=== PATIENT | female | born 1970 | race Caucasian/White ===

== ENCOUNTER 2024-08-04 10:49 | Inpatient (IN) | payer OTHER, SELFPAY ==
--- NOTE | 2024-07-30 11:57 | EKG12_ITS ---
Test Reason : PREOP Blood Pressure : */* mmHG Vent. Rate : 77 BPM Atrial Rate : 77 BPM P-R Int : 152 ms QRS Dur : 84 ms QT Int : 424 ms P-R-T Axes : 53 24 38 degrees QTcB Int : 479 ms Normal sinus rhythm with sinus arrhythmia Normal ECG Confirmed by MICHAEL MAGANA, MARIVEL ([id number]), newspaper photo editor EMILIE BLOOD ([id number]) on 08/02/2024 6:09:03 AM Referred By: Riccardo Mejia Confirmed By: MARIVEL RODRIGUEZ MD
[2024-07-30 13:03] LABS: Absolute Lymphocyte Count 1.82 X10^3/uL (0.83-4.51); Absolute Neutrophil Count 3.5 X10^3/uL (2.0-7.7); Basophil# 0.04 X10^3/uL; Basophil% 0.7 % (0-1); Eosinophil# 0.19 X10^3/uL; Eosinophils% 3.2 % (0-5); Hematocrit 40.4 % (37-47); Hemoglobin 13.4 g/dL (12.0-15.0); Lymphocyte # 1.82 X10^3/ul (0.83-4.51); Lymphocyte % 30.7 % (19-41); Mean Corp Hgb Conc 33.2 g/dL (32-36); Mean Corpuscular Hgb 28.9 pg (27.0-32.0); Mean Corpuscular Volume 87.3 fL (81-99); Mean Platelet Vol. 9.6 fl (6.2-12.0); Monocyte# 0.41 X10^3/uL; Monocyte% 6.9 % (0-10); NRBC Flagged by Analyzer 0 % (0-5); Neutrophil # 3.45 X10^3/uL (2.7-7.7); Neutrophil % 58.3 % (47-70); Platelet Count 255 K/mm3 (150-450); RBC Distribution Width CV 14.3 % (11.6-14.6); RBC Distribution Width SD 45.3 fl (35.1-43.9); Red Blood Count 4.63 M/mm3 (4.2-5.4); White Blood Count 5.9 K/mm3 (4.4-11.0)
[2024-07-30 14:13] LABS: Anion Gap 6 (5-15); BUN 13 mg/dL (7-18); BUN/Creat Ratio 19.2 RATIO (10-20); Calcium,Total 9.2 mg/dL (8.5-10.1); Chloride 103 mmol/L (98-107); Creatinine, Serum 0.68 mg/dL (0.55-1.02); EST Glomerular Filtration Rate 97 mL/min (>60); Est Glom Filt Rate - Afr Amer 117 mL/min (>60); Glucose 115 mg/dL (74-106); Magnesium 2.4 mg/dL (1.6-2.6); Potassium 3.7 mmol/L (3.5-5.1); Sodium Level 138 mmol/L (136-145)
[2024-07-31 05:07] LABS: Hepatitis A AB, Total Negative (Negative)
[2024-07-31 12:35] LABS: HIV - WCH Non-Reactive (Nonreactive); Hepatitis B Surface Antibody Non-Reactive; Hepatitis C Antibody Non-Reactive (Nonreactive)
[2024-08-04] VITALS (12 sets, daily range): BP systolic 121–169; BP diastolic 67–87; PULSE 60–96; RESP 14–20; TEMP 36.4–37.3; O2SAT 89–100; BMI 35.5; BMI 36.8
[2024-08-04] MEDS: 0.9% Normal Saline (1000mL) 1,000 ML 15 ML IV (05:50)
[2024-08-04] MEDS: Magnesium 1 GM over 15 mins IV (05:55)
[2024-08-04] MEDS: Acetaminophen 500 MG Tablet 1000 MG PO ×3 (06:14→21:54)
--- NOTE | 2024-08-04 06:30 | RAD_ITS ---
Fluoroscopic guidance imaging was used for intraoperative planning. Please refer to the operative note for further details. Total fluoroscopy time was 149.2 seconds. Total radiation dose was 106.48 mGy. Reading Location: [facility]
--- NOTE | 2024-08-04 07:02 | PRE.ANES_ITS ---
ASA Classification* ASA Classification ASA Classification: 2 Assessment & Plan Anesthesia* Anesthesia Assessment Anesthesia Assessment: Discussed sedation and/or anesthesia options, risks, benefits, and alternatives with patient/parents/legal guardian/POA. Questions invited. The patient/parents/legal guardian/POA seems to understand and agrees to proceed with anesthesia plan. Reviewed the physical assessment, medical history, allergy history and patient home medications list prior to surgery/procedure/anesthetic and documented any changes. Performed airway and anesthesia risk assessments. Anesthesia Type Anesthesia Type: General Anesthesia Focused Assessment* Temperature: 99.1 F Pulse Rate: 86 Blood Pressure: 169/86 Respiratory Rate: 16 Pulse Ox: 98 Airway Assessment Mouth opens: >3 cm Mallampati Score: II Focused Labs Anesthesia Preop lab: CBC WBC 5.9 K/mm3 (4.4-11.0) 07/30/24 12:14 07/30/24 RBC 4.63 M/mm3 (4.2-5.4) 07/30/24 12:14 07/30/24 Hgb 13.4 g/dL (12.0-15.0) 07/30/24 12:14 07/30/24 Hct 40.4 % (37-47) 07/30/24 12:14 07/30/24 Plt Count 255 K/mm3 (150-450) 07/30/24 12:14 07/30/24 CHEMISTRY Potassium 3.7 mmol/L (3.5-5.1) 07/30/24 12:14 07/30/24 Sodium 138 mmol/L (136-145) 07/30/24 12:14 07/30/24 Magnesium 2.4 mg/dL (1.6-2.6) 07/30/24 12:14 07/30/24 BUN 13 mg/dL (7-18) 07/30/24 12:14 07/30/24 Creatinine 0.68 mg/dL (0.55-1.02) 07/30/24 12:14 07/30/24 Glucose 115 mg/dL (74-106) H 07/30/24 12:14 07/30/24 COAG Pre-Assessment Diagnosis/Proposed Procedure Planned Operative Procedure(s): Minimally invasive Transforaminal Lumbar Interbody Fusion L5-S1 Anesthesia History Anesthesia History - curriculum and assessment director: Anesthesia History - curriculum and assessment director Hx Hospitalization No 07/23/24 09:01 Any Problems With Anesthesia No 07/23/24 09:01 Cholinesterase deficiency No 07/23/24 09:01 You/Your Family Experience No 07/23/24 09:01 fever (hyperthermia) with Relationship Recent Exposure to Contagious No 08/04/24 05:50 Disease Does patient have nerve No 07/23/24 09:01 stimulator Patient instructed to have device shut off --Does patient have Pacemaker No 08/04/24 05:50 or ICD? When Was Last Pacemaker Check QUESTION #4 FULL TEXT: You/Your Family Experience fever (hyperthermia) with Anesthesia Last Oral Intake Last Oral intake: Last Oral Intake NPO since 03:30 08/04/24 05:50 Meds taken in AM with sips of No 08/04/24 05:50 water? Meds patient instructed to take am of surgery PONV PONV - curriculum and assessment director: PONV - curriculum and assessment director Female Yes 07/23/24 09:01 HX of Motion Sickness Yes 07/23/24 09:01 HX of N/V After Surgery Yes 07/23/24 09:01 Non-Smoker Yes 07/23/24 09:01 Duration of Surgery greater Yes 07/23/24 09:01 than 60 minutes Number of Risk Factors 5 07/23/24 09:01 PONV Score Severe Risk 07/23/24 09:01 Height & Weight Height & Weight: Anesthesia: Height & Weight Height 5 ft 8 in 08/04/24 05:50 Weight: 106 kg 08/04/24 05:50 Body Mass Index (BMI) 35.5 08/04/24 05:50 Respiratory Assessment Respiratory Assessment - curriculum and assessment director: Respiratory Tract Infection Hx - curriculum and assessment director Hx Respiratory Tract Infection No 07/23/24 09:01 STOP Sleep Apnea STOP Sleep Apnea - curriculum and assessment director: STOP Sleep Apnea - curriculum and assessment director Hx Hypertension Yes 07/23/24 09:01 Hx Sleep Apnea Yes: USES APAP 07/23/24 09:01 CPAP No 07/23/24 09:01 BIPAP No 07/23/24 09:01 Do you snore loudly (louder than talking or can be heard Do you often feel tired/ fatigued/ sleepy during daytime? Has anyone observed you stop breathing during sleep? STOP Results Positive 07/23/24 09:01 QUESTION #5 FULL TEXT : Do you snore loudly (louder than talking or can be heard through closed doors)? Tobacco Use History Tobacco Use History - curriculum and assessment director: Tobacco Use History - curriculum and assessment director Tobacco Use Smoking Status Former smoker 07/23/24 09:01 Hx Tobacco Use Yes 07/23/24 09:01 Years Smoking Packs Smoked per Day Smoking Cessation Date was Yes - quit smoking within 15 07/23/24 09:01 within the last 15 years years Hx Smoking Cessation Date Hx Smoking Cessation Counseling Hematologic Medial History Hematologic Hx - curriculum and assessment director: Hematologic Medical Hx - drawer in Hx of Blood Transfusion No 07/23/24 09:01 Hx of Transfusion in last 3 No 07/23/24 09:01 Months Date of Last Transfusion (if within last 3 months) Ever experience any problems No 07/23/24 09:01 with transfusion(s)? Specify any problems Hx of Preganancy in last 3 No 07/23/24 09:01 Months Nurse Filling Out Transfusion VLEHMAN 07/23/24 09:01 & Questions: Date: 07/23/24 07/23/24 09:01 Time: 09:09 07/23/24 09:01 Patient unable to answer at this time (ie. confused, unrespo /Reproduction History /Reproductive History - curriculum and assessment director: /Reproductive Hx- curriculum and assessment director Hx Now No 07/23/24 09:01 Gestational Age (in weeks): EDC: Hx Hx Para Hx Section SAB Active Medications Active Medications: Current Medications Generic Name Dose Route Start Last Admin Trade Name Freq PRN Reason Stop Dose Admin Acetaminophen 1,000 mg 08/04/24 07:30 08/04/24 06:14 Acetaminophen 500 Mg Tablet PO 08/04/24 07:31 1,000 mg X1 ONE Administration Cefazolin Sodium 2 gm/ N/A 20 mls @ 400 mls/hr 08/04/24 07:30 IV 08/04/24 07:32 PREOP ONE Tranexamic Acid 1,000 mg/ 110 mls @ 440 mls/hr 08/04/24 07:30 Sodium Chloride IV 08/04/24 07:44 X1 ONE Tranexamic Acid 1,000 mg/ 110 mls @ 440 mls/hr 08/04/24 07:30 Sodium Chloride IV 08/04/24 07:44 X1 ONE Magnesium Sulfate 1 gm/ 102 mls @ 408 mls/hr 08/04/24 07:30 08/04/24 05:55 Dextrose IV 08/04/24 07:44 408 mls/hr X1 ONE Administration Sodium Chloride 1,000 mls @ 15 mls/hr 08/04/24 05:40 08/04/24 05:50 IV 08/09/24 18:59 15 mls/hr .Q48H YOSELIN Administration Protocol Insulin Human Lispro 1 - 6 unit 08/04/24 07:30 Insulin Lispro 100 Unit/Ml Insuln.Pen SC 08/04/24 18:00 Q4H PRN PRN BG>/= 180, SEE PROTOCOL Protocol PFSH Medical History Wears glasses Wears dentures Arthritis High cholesterol Former smoker Sleep apnea Home Medications ?Medication ?Instructions ?Recorded ?Last Taken ?Type lisinopril 20 mg tablet 20 mg PO QDAY 07/16/2408/03 11:00 History meloxicam 7.5 mg tablet 7.5 mg PO QDAY 07/16/2410/22 11:00 History Allergy/AdvReac Type Severity Reaction Status Date / Time pseudoephedrine (From AdvReac Other Verified 08/04/24 06:08 Sudafed) Surgical History History of tooth extraction History of surgery History of appendectomy History of laminectomy H/O discectomy History of repair of rotator cuff Social History household members: spouse Smoking Status: Former smoker alcohol intake: current alcohol intake frequency: holidays/special occasions only Review of Systems (Anesthesia) ROS Narrative System reviewed and no additional complaints, except as documented.
--- NOTE | 2024-08-04 07:18 | PCM.HP.BLA ---
History and Physical Date of Admission: 08/04/24 MR#: [id number] Acct: [id number] Name: WILLIAMS COHEN Rep #: [id number] : 1970 Provider: Dr. Riccardo Mejia MD Age/Sex: 54/F Location: [facility] [place].[facility] Status: Signed Intake Vital Signs 07/16/2512:23 Height 5 ft 8 in Weight: 234 lb BMI 35.6 Intake Visit Reasons: lumbar spine Chief Complaint: Lumbar Spine Pain Accompanied by: Is patient in pain?: No Allergies pseudoephedrine (From YOLLEGE) Adverse Reaction (Verified 07/30/24 14:32) Other Medications ?Medication ?Instructions ?Recorded ?Confirmed ?Type lisinopril 20 mg tablet 20 mg PO QDAY 07/16/24 07/30/24 History meloxicam 7.5 mg tablet 7.5 mg PO QDAY 07/16/24 07/30/24 History PFSH Medical History Wears glasses Wears dentures Arthritis High cholesterol Former smoker Sleep apnea Surgical History History of tooth extraction History of surgery History of appendectomy History of laminectomy H/O discectomy History of repair of rotator cuff Social History household members: spouse Smoking Status: Former smoker alcohol intake: current alcohol intake frequency: holidays/special occasions only HPI lumbar spine Details: This documentation accurately reflects the service provided and the decisions made by me, Dr. Riccardo Mejia MD 07/30/24 1432. Part of today?s visit was documented by [ ], acting as scribe. WILLIAMS COHEN is a 54 year old F here today for pre-op visit for upcoming L5-S1 transforaminal lumbar body fusion to allow decompression and stabilization. Pre-op instructions completed. Pt verbalized understanding. HPI for 07/16/24 OV for lumbar spine pain. Patient states the back has been bothering her for years. Patient states this time her back started bothering her in the end of February. She states she bent down to tie her shoe and and felt something in her back. She states she was in bed for about 3 weeks and was only able to get out to use the restroom. She describes most of the pain over the right lumbar spine and down the right leg. Patient states she tried physical therapy at [facility] in [place] and it did not give her any relief and anything that they had her do really gave her pain. Patient states the right foot is numb and she has a cold feeling to it. She denies any pain down the right leg. Patient had a discectomy and laminectomy in 2021. Patient states she had foot drop really bad after her prior surgeries. Patient states she had an injection on 04/23/[address] Mendez and she did not get any relief. Reviewed x-rays of the lumbar spine done today and MRI done in April. Postsurgical changes of right L5-S1 laminotomy noticed. There is a recurrent right paracentral disc herniation at L5-S1. L5-S1 disc height loss and Modic changes noticed. The first time she dealt with lumbar spine pain she was reaching to grab a pen off of a shelf and hit the floor due to initial pain. When the first injury occurred she had extreme pain down the right leg and dealt with sciatic type of pain. After surgery she had a lot of radiating pain, numbness and tingly sensation in her foot on the right side. She first had an injection in December 2023. The weakness in the right leg has never come back since her first surgery. Since she hurt her back the second time the pain and nerve type of pain in the right leg has gotten better. Her right calf muscle will knot up and cause her pain. Non diabetic, her PCP did think she was pre-diabetic and had her take trulicity and A1C came down drastically. Not currently taking blood thinners. No heart/lung issues. Ortho Exam General General: Yes no acute distress Neurologic: Yes alert and Yes oriented x3 Psychologic: Yes reasonable and appropriate Spine SPINE TESTING CERVICAL THORACIC LUMBAR Musculoskeletal Strength 0=absent - 5=normal Details: Examination of the back shows prior midline lower lumbar incision well-healed. There is significant spinous process as well as paraspinal tenderness in the lower lumbar spine towards the right. Neurologic evaluation of lower extremity shows 5 x 5 power in all muscles except for right gastrosoleus which is grade 4. Reduced sensation in right S1 dermatome. Right sided passive straight leg raise test is positive. There is no hyperreflexia lower extremities. Coding Level of Care Code Off vis,est,level 4 Diagnoses Recurrent herniation of lumbar disc M51.26 Other intervertebral disc degeneration, lumbar region with discogenic back pain and lower extremity pain M51.362 Time Spent (min) 35 Assessment and Plan Assessment and Plan (1) Recurrent herniation of lumbar disc: Status: Acute (2) Other intervertebral disc degeneration, lumbar region with discogenic back pain and lower extremity pain: Status: Acute Plan Again reviewed x-rays of the lumbar spine done today and MRI done in April. Postsurgical changes of right L5-S1 laminotomy noticed. There is a recurrent right paracentral disc herniation at L5-S1. L5-S1 disc height loss and Modic changes noticed. Again explained the imaging findings in detail today. Explained to her that she has developed a recurrent disc herniation. A lot of her leg symptoms from the multiple disc herniations have somewhat improved with some residual numbness and calf cramping and weakness, but her axial low back pain has continued to worsen and is affecting her quality of life. Discussed treatment options which include continued nonoperative treat measures versus surgery. She has had 2 epidural injections over the last few months without persistent relief. She is not able to do activities of daily living due to the severe pain. Surgical options were discussed. Decompression with fusion was discussed in detail in the form of TLIF, as she has had recurrent disc herniations and is now having more back pain than leg pain. Explained the risks and benefits of L5-S1 TLIF. The risks include but are not limited to infection, bleeding, hematoma formation, need for further surgery, injury to nerves and vessels, nerve root injury, foot drop, persistent pain, persistent numbness and weakness, adjacent segment degeneration, hardware failure, pseudoarthrosis, DVT, pulm embolism, cardiopulmonary event. Patient understands and agrees to proceed with surgery
[2024-08-04] MEDS: Cefazolin 2 GM in Syringe 10 ML IV ×2 (08:12→16:11)
[2024-08-04] MEDS: TRANEXAMIC ACID 1,000 MG in 0.9% Normal Saline (100mL Bag) 100 ML 440 MG IV ×2 (08:13→10:13)
[2024-08-04] MEDS: Ropivacaine 0.5% 30 ML Vial (10:35)
--- NOTE | 2024-08-04 10:37 | PCM.OPRPT ---
Procedures Musculoskeletal [id number]: Other Procedure See Report Operative Report (Standard) Operative Information Date of Procedure: 08/04/24 Pre-Operative Diagnosis: L5-S1 disc degeneration, recurrent disc herniation Post-Operative Diagnosis: Same Surgery/Procedure Performed: L5-S1 transforaminal lumbar interbody fusion inspector rag sorting: Yes Heating And Ventilation Engineer: Chela Garcia Tasks completed by airplane first officer: Closing, Removing tissue, Hemostasis: Electrocautery and Retracting Type of Anesthesia: General RN Documented Start/Stop Times: Operation Date: 08/04/24 07:30 Case Time Into Pre-Op 08/04/24 05:33 Out of Pre-Op 08/04/24 07:25 Anesthesia Start 08/04/24 07:30 Into Room 08/04/24 07:30 Procedure Start 08/04/24 08:16 Procedure Start Time: 08:16 Procedure Stop Time: 10:40 Select all DRAINS/GRAFTS/IMPLANTS that apply: Graft Graft details: Cortical cancellous allograft bone chips, autograft from lamina and facet bone and Implanted device Implanted device details: DePuy Synthes XPac TLIF expandable cage, Viper prime pedicle screw instrumentation Estimated Blood Loss: 50 cc Specimen collected: No Description of surgery: Preoperative diagnosis: L5-S1 disc degeneration with recurrent disc herniation, stenosis Postoperative diagnosis: Same Name of procedure: L5-S1 transforaminal lumbar interbody fusion (TLIF), minimally invasive right side approach, percutaneous pedicle screw instrumentation. . L5-S1 posterior spinal fusion and interbody fusion [id number] ? L5-S1 posterior pedicle screw instrumentation [id number] . L5-S1 insertion of cage [id number] . Local autograft [id number] . Cancellous allograft with DBX Attending Surgeon: Dr. Riccardo Mejia Estimated blood loss: 50 mL Anesthesia: GA Complications: None Implants: DePuy Synthes X-PAC TLIF cage, Viper prime screws Indications: Patient is a 54-year-old lady who has had a history of low back pain that radiates into right lower extremity. X-rays and MRI revealed L5-S1 disc degeneration with left paracentral disc herniation, lateral recess stenosis, postsurgical changes of prior right L5-S1 laminotomy. Patient was explained all options of treatment which included continued nonoperative treatment measures like rest physical therapy, epidural steroidal injections. After a prolonged period of of nonoperative treatment, patient elected to undergo surgical decompression & fusion since the symptoms severely affected her quality of life. All risks and benefits associated with the procedure were explained to the patient. The risks include but are not limited to infection, bleeding, injury to nerves and vessels, persistent paresthesia, persistent pain, dural tear, need for further procedures, adjacent segment degeneration, pseudoarthrosis, hardware failure, etc. Procedure: The patient was identified in the preoperative holding suite using unique patient identifiers. Skin was marked, consent was reviewed, and all questions were answered. The patient was then brought back to the operative room. A surgical timeout was performed to make sure correct procedure was being done on the correct patient and all operative room staff were on the same page. General endotracheal anesthesia was then given to the patient. Neuromonitoring leads were applied. The patient was then turned prone onto a Shravan table. The back was prepped and draped in usual fashion. IV antibiotic was given as preoperative antibiotic. A final timeout was then again done just before starting the procedure. C-arm AP view was then taken. C-arm was positioned in a way that L5 was centralized and superior endplate of L5 and was parallel to the beam. Spinous process was centered between the pedicles. Midline was marked with skin marker and lateral borders of the pedicles were also marked. Skin marker was also utilized to joycelyn transversely across the middle of the pedicles at L5. 2 vertical incisions about 1 inch Extending below this line were taken about 1/2 inch lateral to the pedicle line. The fascia was also incised vertically approximately the same length. Finger dissection was utilized to palpate the superior articular process and facet joint of L5-S1 on the right side. Sequential tubes were docked on the L5-S1 facet joint and 80 mm length and 21 mm diameter tubular retractor was then placed and was attached to the arm attached to the OR table. Muscle tissue was removed with pituitaries and hemostasis was achieved with Bovie. Right inferior articular process of L5 and superior articular process of S1 were exposed with Bovie. Osteotome was utilized to remove a portion of the inferior articular process to expose the articular surface of S1. Some of this resected bone was used as autograft. Bone scalpel was then utilized to remove the rest of the inferior articular process and part of the lamina of L5. Superior articular process of S1 was resected with the help of a bone scalpel and osteotome such that the cut was flush with the superior border of S1 pedicle. The traversing nerve root was carefully retracted to expose the disc. Hemostasis was achieved with bipolar cautery. Cruciate incision into the annulus was taken. Multiple nerve hook was utilized to remove any extruded fragments from the lateral recess. Blunt spreaders were utilized to enter the disc space under C-arm visualization. Pituitary was used to remove disc material. Curettes of various sizes and angulations were utilized to remove as much of the disc material as possible. End plates were curetted to remove all cartilage. Angled curettes were used to remove disc material from the other side underneath the central annulus. Depuy X-PAC trials were inserted into position and checked under C- arm lateral view. The disc space was then filled with cancellous bone chips mixed with DBX which were then impacted with the trials. An 10 x 28 mm lordotic tall X-PAC cage filled with bone graft was then inserted into the disc space under x-ray control. Care was taken to make sure the cage was inserted deeper to the posterior longitudinal ligament. The expandable cage was then expanded to up to approximately 14 mm anterior height with approximately 15 degrees lordosis. The cage was found to be well fixed and not easily removable. AP and lateral views showed good positioning of the cage. Depuy Viper Prime screw tower was docked onto the transverse processes at L5. This was then slowly moved medially to reach the superior articular process of L5. This was then confirmed on C-arm and then a mallet was utilized to drive the trocar and screw into the pedicle going up to the medial wall of the pedicle on AP view. This was performed both sides. C-arm lateral view confirmed both trocars to be inside vertebral body. The screws were advanced. Similar procedure was done at S1 both sides. Cannulated pedicle screws (Depuy Viper) sizes were 7 x 45 mm bilaterally at L5 and S1 levels bilaterally. The lateral view showed good positioning of the screws and cage. 45 mm precontoured titanium 5.5 mm lordotic fredy on both sides was then passed through the screw extensions and reduced down to the screws with the help of Depuy Viper Prime instrumentation system. AP and lateral views of the C-arm showed good positioning of the screws and cage. Final tightening with the torque screwdriver was then completed. Micheal was utilized to decorticate the left L5-S1 facet joint and bone graft was placed over this. Hemostasis was achieved with the help of Bovie and FloSeal. Closure was done in layers with 0 Vicryls for the fascia, 2-0 Vicryls for the subcutaneous tissue, and Monocryl for the skin. Dressings were applied covered with Tegaderm. The patient was then turned supine onto a hospital bed. The patient was extubated and taken to PACU in stable condition. The patient tolerated the procedure well and no complications occurred. Missingames X-PAC cage & Viper Prime minimally invasive pedicle screw instrumentation system was utilized in this case. No dural tear was identified in this case. Multimodal neuro monitoring was utilized. All potentials stayed at baseline throughout the procedure. I was present for the entirety of the case and performed the surgery myself. On[employer]razzo Worker Chela Garcia PA-C. My physician life enrichment assistant was a vital part of this case. They were important in appropriate retraction during the case, and protection of soft tissues during the procedure. Their intimate knowledge of the case and my steps aided in safe and expedient completion of the procedure as well as appropriate position of the patient during the surgery. They were also vital in assisting with closure under my direct supervision. Surgical Findings: See operative note Complications Complications: No
--- NOTE | 2024-08-04 13:08 | PCM.POST.ANE ---
Anesthesia: Postop Eval I Current Vital Signs Temperature: 97.9 F Pulse Rate: 77 Blood Pressure: 127/75 Respiratory Rate: 18 Pulse Ox: 99 Oxygen Delivery Method: Nasal Cannula Oxygen Flow Rate (L/min): 2 Assessment Airway patent: Yes Spontaneous unlabored respirations: Yes nausea: No Vomiting: No Anesthesia Complication: No Fluid Hydration Crystalloid volume administer (ml): 800 Total IV fluid infused: 800 Progress Note Anesthesia document: Postop Eval 1 completed: Yes
--- NOTE | 2024-08-04 13:10 | PCM.POSTANE2 ---
Anesthesia Postop Eval I Sum Postop Eval Completion status Anesthesia document: Postop Eval 1 completed: Yes Anesthesia Postop Eval I Summary Anesthesia Postop Eval I Summary: Anesthesia Postop Eval I: Assessment Summary Airway patent Yes 08/04/24 13:09 Spontaneous unlabored Yes 08/04/24 13:09 respirations Mental status nausea No 08/04/24 13:09 Vomiting No 08/04/24 13:09 Anesthesia Postop Eval I: Fluid Summary Crystalloid volume administer 800 08/04/24 13:09 (ml) Colloids volume administered ( ml) Blood Product volume administered (ml) Total IV fluid infused 800 08/04/24 13:09 Anesthesia Postop Eval I: Summary Notes Anesthesia Complication No 08/04/24 13:09 Anesthesia Complication Comment: Post-operative progress note Anesthesia: Postop Eval II Evaluation Mental status: Awake Pain Level: 0 nausea: No Vomiting: No
[2024-08-04] MEDS: Methocarbamol 500 MG Tablet 1000 MG PO ×3 (16:10→21:54)
[2024-08-04] MEDS: 0.9% Saline Lock 10 ML Syringe IV ×2 (16:12→19:53)
--- NOTE | 2024-08-04 17:38 | PN.HOSP_ITS ---
Reason for Visit Reason for Visit: Diagnoses Encounter for other preprocedural examination (08/04/24) Subjective Subjective 54-year-old female with a history of hypertension presented [facility] 08/04/2024 for L5-S1 lumbar interbody fusion with Dr. Mejia. Hospitalist consulted for medical management. Patient evaluated bedside with family member present, reports she has been up multiple times and ultimately feels better than she did before the surgery and has no new or acute complaints. Currently eating dinner with no nausea Objective Data Objective Data Vital Signs: Vital Signs Temp Pulse Resp BP Pulse Ox O2 Del Method O2 Flow Rate 97.5 F L 88 18 146/74 H 95 Room Air 2 08/04/24 17:19 08/04/24 17:19 08/04/24 17:19 08/04/24 17:19 08/04/24 17:19 08/04/24 17:19 08/04/24 13:09 Oxygen Flow Rate (L/min) 2 Oxygen Delivery Method Room Air Weight: 110 kg Body Mass Index (BMI) 36.8 Intake & Output: Intake and Output for Last 24 Hours 08/02/24 08/03/24 08/04/24 23:59 23:59 23:59 Intake Total 2362 / 2362 Output Total 160 / 160 Balance 2202 / 2202 Lab / Micro Data 07/30/24 12:14 07/30/24 12:14 Micro: Microbiology 07/30/24 12:14 Swab (Method) Nasal Screen MRSA/MSSA - Final Physical Exam Narrative General: Alert, oriented, no apparent distress HEENT: Atraumatic, normocephalic Eyes: extraocular movements grossly intact Neck: Supple Respiratory: normal respiratory effort GI: nondistended Extremities: Moving all extremities Neuro: No overt focal neurological deficits Psych: Cooperative Assessment & Plan Assessment/Plan (1) Hypertension: PLAN: Plan #Hypertension -Patient be resumed on her home lisinopril # L5-S1 disc degeneration with recurrent disc herniation -Patient underwent L5-S1 transforaminal lumbar interbody fusion 08/04/[address] Mejia -PT/OT -Management per primary #DVT ppx: Per primary Henna Reeves MD Time spent in the patient's overall evaluation, decision-making process, review of diagnostic data, adjustment of management, discussion with other providers, nursing and ancillary staff involved in patient's care documentation, 17 Minutes Charges/Coding Visit Charges Office Visits / Consults: 37703 OV L2 Est 10min
[2024-08-04] MEDS: Ensure Surgery 237 ML LIQUID PO (18:12)
[2024-08-04] MEDS: Senna/Docusate Sodium 1 Tablet 2 TABLET PO (21:54)
[2024-08-05 01:29] VITALS: BP 139/80; PULSE 95; RESP 18; TEMP 36.9; O2SAT 94
[2024-08-05] MEDS: Cefazolin 2 GM in Syringe 10 ML IV (01:32)
[2024-08-05] MEDS: 0.9% Saline Lock 10 ML Syringe IV (01:34)
[2024-08-05 05:37] VITALS: BP 142/80; PULSE 86; RESP 18; TEMP 36.7; O2SAT 98
[2024-08-05] MEDS: Acetaminophen 500 MG Tablet 1000 MG PO (05:42)
[2024-08-05 06:59] LABS: Hematocrit 36.8 % (37-47); Hemoglobin 11.7 g/dL (12.0-15.0); Mean Corp Hgb Conc 31.8 g/dL (32-36); Mean Corpuscular Hgb 28.7 pg (27.0-32.0); Mean Corpuscular Volume 90.4 fL (81-99); Mean Platelet Vol. 9.7 fl (6.2-12.0); Platelet Count 257 K/mm3 (150-450); RBC Distribution Width CV 14.6 % (11.6-14.6); RBC Distribution Width SD 48.6 fl (35.1-43.9); Red Blood Count 4.07 M/mm3 (4.2-5.4); White Blood Count 9.4 K/mm3 (4.4-11.0)
--- NOTE | 2024-08-05 07:00 | RAD_ITS ---
EXAM: XR Lumbosacral Spine, 2 or 3 Views CLINICAL INDICATION: TECHNIQUE: Frontal and lateral views of the lumbar spine and sacrum. COMPARISON: No relevant prior studies available. FINDINGS: VERTEBRAE: Unremarkable. No acute fracture. Normal alignment. SACRUM/COCCYX: Unremarkable as visualized. No acute fracture. DISC SPACES: Status post posterior fusion of L5-S1 with disc spacer. Intact hardware. Anatomic position. SOFT TISSUES: Unremarkable. RAD/Lumbar Spine 2 or 3 Views IMPRESSION: Posterior fusion of the lower lumbar spine as above. Reading Location: [facility]
[2024-08-05 07:35] LABS: Anion Gap 7 (5-15); BUN 13 mg/dL (7-18); BUN/Creat Ratio 14.9 RATIO (10-20); Calcium,Total 9.2 mg/dL (8.5-10.1); Chloride 109 mmol/L (98-107); Creatinine, Serum 0.87 mg/dL (0.55-1.02); EST Glomerular Filtration Rate 72 mL/min (>60); Est Glom Filt Rate - Afr Amer 87 mL/min (>60); Estimated Creatinine Clearance 96.09 ml/min; Glucose 179 mg/dL (74-106); Potassium 3.9 mmol/L (3.5-5.1); Sodium Level 139 mmol/L (136-145)
--- NOTE | 2024-08-05 08:31 | PCM.PN.ORT ---
Subjective Subjective Patient is postop day 1 L5-S1 TLIF. She is doing well postoperatively with her pain managed. Patient says that she has only required Tylenol to deal with her pain since the surgery and feels that it has been a great success already. Says that prior to surgery she would get cramps in her right calf but currently she says she has not had any. She has been up and walking on her own as well as with therapy. X-rays were obtained today. Patient is ready to be discharged home. Seen with Dr. Mejia. Objective Data Objective Data Vital Signs: Vital Signs Temp Pulse Resp BP Pulse Ox O2 Del Method O2 Flow Rate 98.1 F 86 18 142/80 H 98 Room Air 2 08/05/24 05:37 08/05/24 05:37 08/05/24 05:37 08/05/24 05:37 08/05/24 05:37 08/05/24 05:37 08/04/24 13:09 Oxygen Flow Rate (L/min) 2 Oxygen Delivery Method Room Air Weight: 242 lb 8.136 oz Body Mass Index (BMI) 36.8 Intake & Output: Intake and Output for Last 24 Hours 08/03/24 08/04/24 08/05/24 23:59 23:59 23:59 Intake Total 2362 / 2362 420 / 420 Output Total 160 / 160 Balance 2202 / 2202 420 / 420 Lab / Micro Data 08/05/24 05:42 08/05/24 05:42 Labs: Laboratory Results - last 24 hr 08/05/24 05:42: WBC 9.4, RBC 4.07 L, Hgb 11.7 L, Hct 36.8 L, MCV 90.4, MCH 28.7, MCHC 31.8 L, RDW Std Deviation 48.6 H, RDW Coeff of Justine 14.6, Plt Count 257, MPV 9.7, Sodium 139, Potassium 3.9, Chloride 109 H, Carbon Dioxide 23.0, Anion Gap 7, BUN 13, Creatinine 0.87, Estim Creat Clear Calc 96.09, Est GFR (MDRD) Af Amer 87, Est GFR (MDRD) Non-Af 72, BUN/Creatinine Ratio 14.9, Glucose 179 H, Calcium 9.2 Micro: Microbiology 07/30/24 12:14 Swab (Method) Nasal Screen MRSA/MSSA - Final Radiography Diagnostic Testing: Radiology Impression Lumbar Spine X-Ray 08/05/24 07:00 IMPRESSION: Posterior fusion of the lower lumbar spine as above. Reading Location: [facility] Physical Exam Narrative Neurological exam of the lower extremity shows 5X5 power. Normal sensation across all dermatomes. Physical examination of the back shows Tegaderm and gauze is dry and intact. Const alert, oriented x3 and no apparent distress Assessment & Plan Assessment/Plan (1) Status post lumbar spinal fusion: PLAN: Plan Patient is postop day 1 L5-S1 TLIF. X-rays obtained today look good. PT/OT cleared. She will follow-up in 2 weeks at the clinic. Home-going meds include oxycodone, acetaminophen, methocarbamol, meloxicam, senna. Patient is in agreement.
[2024-08-05 09:15] VITALS: BP 142/76; PULSE 65; RESP 14; TEMP 36.7; O2SAT 99
[2024-08-05] MEDS: Methocarbamol 500 MG Tablet 1000 MG PO (09:17)
[2024-08-05] MEDS: Meloxicam 15 MG Tablet PO (09:18)
[2024-08-05] MEDS: Senna/Docusate Sodium 1 Tablet 2 TABLET PO (09:18)
[2024-08-05] MEDS: Ensure Surgery 237 ML LIQUID PO (09:18)
[2024-08-05] MEDS: Lisinopril 20 MG Tablet PO (09:18)
[2024-08-05 10:30] VITALS: O2SAT 94
[2024-08-05 10:46] VITALS: O2SAT 94
--- NOTE | 2024-08-05 12:15 | CASEMGMT ---
ANGEL HERRERA Assessment: Face to Face with pt for initial transition planning/care coordination assessment. RN SHARON introduced self and role at [facility], pt voices understanding and consents to assessment. Pt is A&O x4 and answers all questions appropriately at this time. Pt sitting on eob with at bedside and nurse in room. Care providers, pharmacy, and demographics verified/updated. Admitting Dx: lumbar fusion Strata Score: 1 PCP:Eddie Specialists:james Mejia Preferred Pharmacy:[facility] but pt aware that the meds were already sent to [facility] and is agreeable to this. Insurance: MMO Prescription Benefit: yes LNOK: [place], Living Arrangements: Pt lives with in a single story home with 3 steps to enter. Pt reports prior to surgery she was I in ADLs but needed assistance with laundry and groceries which helped. Pt denies concerns at home. Transportation: Pt drives self and denies concerns with transportation. Pt to transport pt until she can drive again. DME:walker, raised toilet seat, toilet side rails HHC/SNF: Denies hx of Pt states no concerns with going home at time of dc. Pt states no further concerns/needs. CM to follow. Advised pt to ask CM if any further questions/concerns/needs arise, voices understanding. Pt Goal: Home Plan: Home Shaq ORTIZ CM
== END 2024-08-05 12:41 | disposition home or self-care (01) | DRG 451 ==
LOC: SDC 11:35 → MS3 11:35
PROVIDERS: Student in an Organized Health Care Education/Training Program; Admitting Provider Orthopaedic Surgery Orthopaedic Surgery of the Spine; PCP Family Medicine; Referring Provider Orthopaedic Surgery Orthopaedic Surgery of the Spine; Visit Provider Orthopaedic Surgery Orthopaedic Surgery of the Spine
PROC: 0SG33AJ Fusion of Lumbosacral Joint with Interbody Fusion Device, Posterior Approach, Anterior Column, Percutaneous Approach (ICD-10-PCS; principal; 2024-08-04 07:00)
DX: M51.26 Other intervertebral disc displacement, lumbar region (principal); E78.00 Pure hypercholesterolemia, unspecified; I10 Essential (primary) hypertension; M51.27 Other intervertebral disc displacement, lumbosacral region; Z87.891 Personal history of nicotine dependence; R73.03 Prediabetes; M51.379 Other intervertebral disc degeneration, lumbosacral region without mention of lumbar back pain or lower extremity pain; M51.362 Other intervertebral disc degeneration, lumbar region with discogenic back pain and lower extremity pain
CPT/HCPCS: 36415; 72020; 72100; 76000; 80048; 83735; 85025; 85027; 86703; 86706; 86708; 86803; 86850; 86900; 86901; 87081; 93005; 94668; 97161; 97165; 99406; C1713; A4216; J2405; J3475